=== PATIENT | male | born 1995 | race Caucasian/White ===

== ENCOUNTER 2020-07-25 08:09 | Day surgery (SDC) | payer BC, SELFPAY ==
[~2020-07-25] VITALS: Ht 170.2 cm; Wt 93.0 kg
[2020-07-25] MEDS ORDERED: SIMETHICONE 40 MG/0.6 ML ML ONE (08:52)
[2020-07-25] MEDS ORDERED: fentaNYL CITRATE/PF 100 MCG/2 ML AMP ONE ×2 (08:52→09:09)
[2020-07-25] MEDS ORDERED: MIDAZOLAM HCL 5 MG/5 ML VIAL ONE (08:52)
[2020-07-25] MEDS ORDERED: DIPHENHYDRAMINE INJ 50 MG/ML VIAL ONE (09:01)
[2020-07-25 11:53] VITALS: BP_SYST 106
== END 2020-07-25 10:43 | disposition home or self-care (01) ==
LOC: SMU 08:09 → SDS 08:09
PROVIDERS: ATTEND Internal Medicine
DX: K62.5 Hemorrhage of anus and rectum (principal); I10 Essential (primary) hypertension; Z87.891 Personal history of nicotine dependence; K62.89 Other specified diseases of anus and rectum; Z79.899 Other long term (current) drug therapy; Z20.828 Contact with and (suspected) exposure to other viral communicable diseases
CPT/HCPCS: 45380; 88305; 99152; G0378; J1200; J2250; J3010; U0003